=== PATIENT | female | born 1945 | race Caucasian/White ===

== ENCOUNTER 2018-05-01 06:46 | Day surgery (SDC) | payer MEDICARE, OTHER ==
[~2018-05-01 06:46] MED LIST: Lactated Ringers 1,000 ML IV SCH; Sodium Chloride 0.9% 10 ML Syringe FLUSH PRN
[2018-05-01] MEDS ORDERED: fentaNYL 100 MCG/2 ML SDV IV ONE (08:00)
[2018-05-01] MEDS ORDERED: Midazolam 1 MG/ML 2 ML SDV IV ONE (08:00)
[2018-05-01] MEDS ORDERED: Propofol 200 MG/20 ML SDV IV ONE (08:00)
--- NOTE | 2018-05-01 08:12 | PCM.HPR ---
H & P Addendum review - H & P Addendum Review Date of Original H & P: 04/16/18 Date Reviewed: 05/01/18 Time Reviewed: 08:00 Patient was Examined: No Changes (Will do EGD and Colonoscopy for Fe Def Anemia and heme pos stool)
--- NOTE | 2018-05-01 08:52 | PCM.OPNOTE ---
- General Post-Op/Procedure Note Date of Surgery/Procedure: 05/01/18 Operative Procedure(s): EGD and Colonoscopy Findings: Hyperplastic polyps in stomach fundus Sigmoid diverticulosis Pre Op Diagnosis: FE Def Anemia; heme pos Post-Op Diagnosis: Same Anesthesia Technique: MAC Primary Surgeon: Matias Uribe Complications: None Condition: Good
[2018-05-01 12:45] VITALS: BP 174/78
--- NOTE | 2018-05-01 12:51 | OR ---
DATE OF OPERATION: 05/01/2018 SURGEON: Matias Uribe MD PREOPERATIVE DIAGNOSES: 1. Iron deficiency anemia. 2. Heme-positive stool. POSTOPERATIVE DIAGNOSES: 1. Hyperplastic polyps of stomach, fundus. 2. Sigmoid diverticulosis. PROCEDURES PERFORMED: 1. EGD. 2. Colonoscopy. ANESTHESIA: IV sedation. DESCRIPTION OF PROCEDURE: The patient was brought to the procedure room, where she was placed on her left side and IV sedation administered. The oral bite block was placed and the upper endoscope advanced into the esophagus under direct vision without difficulty. Vocal cords were viewed and were normal. The scope was advanced to the third portion of the duodenum. Duodenum and pylorus were normal. Antrum and body of the stomach were normal. Retroflexion revealed a normal-appearing fundus, other than some hyperplastic polyps present. No source of bleeding was identified. Air was removed from the stomach, and the scope was withdrawn through the remaining esophagus, which appears normal. The patient tolerated this portion of the procedure well. Next, colonoscopy was performed, after digital rectal exam was done, which was normal. Colonoscope was inserted and advanced to the level of the cecum without difficulty. Cecal position was confirmed by identifying the ileocecal valve and stool could be seen coming through this because of formed stool present in the cecum. However, I was unable to identify the appendiceal lumen or completely visualize all the surfaces of the cecum, but no abnormalities were noted. Upon withdrawing the scope, the ascending, transverse, and descending colon were normal in appearance. Sigmoid colon had a few diverticula present. Rectum was normal and retroflexion was normal. Air was removed, and the scope withdrawn. The patient tolerated the procedure well and returned to Recovery in a stable condition. No source of her anemia was identified today. She will follow up with Leighann Dominguez in the near future for ongoing treatment. /[id number] RICHARD/CHRISSY
== END 2018-05-01 10:15 | disposition home or self-care (01) ==
LOC: FB.SDS 06:46
PROVIDERS: ATTEND Surgery
DX: R19.5 Other fecal abnormalities (principal); D50.9 Iron deficiency anemia, unspecified; K31.7 Polyp of stomach and duodenum; K57.30 Diverticulosis of large intestine without perforation or abscess without bleeding; K21.9 Gastro-esophageal reflux disease without esophagitis; I10 Essential (primary) hypertension; J45.909 Unspecified asthma, uncomplicated; E03.9 Hypothyroidism, unspecified; E11.9 Type 2 diabetes mellitus without complications; E53.8 Deficiency of other specified B group vitamins; E61.2 Magnesium deficiency; E78.5 Hyperlipidemia, unspecified; M70.62 Trochanteric bursitis, left hip; M70.61 Trochanteric bursitis, right hip; G25.81 Restless legs syndrome; F32.9 Major depressive disorder, single episode, unspecified; Z79.51 Long term (current) use of inhaled steroids; Z79.84 Long term (current) use of oral hypoglycemic drugs; Z79.899 Other long term (current) drug therapy; Z88.8 Allergy status to other drugs, medicaments and biological substances
CPT/HCPCS: 00813; 43235; 45378; 82962; J2250; J2704; J3010; J7120

== ENCOUNTER 2020-11-07 05:00 | Emergency (ER) | payer MEDICARE, OTHER, MEDICAID ==
--- NOTE | 2020-11-07 06:47 | EDM.PDOC ---
<Hernandez Wells - Last Filed: 11/07/20 08:30> ED HPI GENERAL MEDICAL PROBLEM - General Chief Complaint: Upper Extremity Injury/Pain Stated Complaint: arm hurts Time Seen by Provider: 11/07/20 06:42 - Related Data Allergies Allergy/AdvReac Type Severity Reaction Status Date / Time escitalopram [From Lexapro] Allergy Hallucinati Verified 07/22/18 09:04 ons Home Meds: Home Meds Albuterol [Ventolin HFA] 1 - 2 puff INH QID PRN 09/06/13 [History] Levothyroxine [Synthroid] 75 mcg PO ACBRK 09/06/13 [History] Montelukast [Singulair] 10 mg PO BEDTIME 09/06/13 [History] Potassium Chloride [Klor-Con M20] 20 meq PO DAILY 09/06/13 [History] Pravastatin [Pravachol] 40 mg PO BEDTIME 09/06/13 [History] carvediloL [Coreg] 25 mg PO BID 09/06/13 [History] metFORMIN [Glucophage] 1,000 mg PO BID 09/06/13 [History] rOPINIRole HCl [Requip] 1 mg PO TID 09/06/13 [History] Venlafaxine [Effexor] 75 mg PO DAILY 02/07/14 [History] ClonazePAM [KlonoPIN] 0.5 mg PO BEDTIME 06/26/15 [History] Furosemide [Lasix] 20 mg PO DAILY 06/26/15 [History] Loratadine/Pseudoephedrine [Loratadine-Pseudoephed 10-240] 1 ea PO DAILY 06/26/15 [History] Iron Ps Cmplx/Vit B12/Fa [Poly-Iron 150 Forte] 1 each PO BID 04/30/18 [History] Omeprazole 20 mg PO DAILY 04/30/18 [History] Azithromycin [Zithromax] 250 gm PO DAILY 07/21/18 [History] Ferrous Sulfate 300 mg PO DAILY 07/21/18 [History] Fluticasone Propionate 1 spray NS DAILY 07/21/18 [History] Magnesium 800 mg PO DAILY 07/21/18 [History] Acetaminophen/HYDROcodone [Pomona 325-5 MG] 1 tab PO Q4H PRN #20 tab 11/07/20 [Rx] Course - Vital Signs Text/Narrative:: Ortho consult was done with Torin and wants her to have a humeral brace and will call her for ortho follow up. Departure - Departure Time of Disposition: 15:00 Disposition: DC/Tfer to SNF 03 Condition: Good Clinical Impression: Left humeral fracture, Humerus fracture - Discharge Information Prescriptions: Acetaminophen/HYDROcodone [Pomona 325-5 MG] 1 tab PO Q4H PRN #20 tab PRN Reason: Pain Instructions: Humerus Fracture Treated With Immobilization, [id number] Referrals: Humberto Carroll MD [Primary Care Provider] - Forms: ED Department Discharge Additional Instructions: Please read discharge instructions on humeral fracture Take Pomona, 1-2 tablets every 4-6 hours as needed for pain Ortho at [facility] will call you this week and see if they can do a follow up with you earlier than your scheduled appointment <OliverMario M - Last Filed: 11/09/20 08:47> ED HPI GENERAL MEDICAL PROBLEM - General Source of Information: Reports: Patient, Custodial Records, Old Records History Limitations: Reports: No Limitations - History of Present Illness INITIAL COMMENTS - FREE TEXT/NARRATIVE: Sonia is a pleasant 75 yo female with arm pain since this morning.She is from [facility] She accidentally pulled herself using the left arm to avoid a fall. She has a recent fracture of the arm,that was treated conservatively and is just healing. She has possible "bone cancer",and is due to consultation with oncology Monday. She also endorses lower abdominal pain and leg pain ,fairly chronic. 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: Musculoskeletal History: Reports: Arthritis, Other (See Below) Other Musculoskeletal History: SPINAL STENOSIS, recent left arm fracture Psychiatric History: Reports: Depression Endocrine/Metabolic History: Reports: Diabetes, Type II, Hypothyroidism, Obesity/BMI 30+ Hematologic History: Reports: Anemia, B12 Deficiency Immunologic History: Reports: None Oncologic (Cancer) History: Reports: None - Infectious Disease History Infectious Disease History: Reports: MRSA - Past Surgical History Musculoskeletal Surgical History: Reports: Carpal Tunnel Other Musculoskeletal Surgeries/Procedures:: BACK SURGERY Social & Family History - Family History Family Medical History: No Pertinent Family History - Tobacco Use Tobacco Use Status *Q: Never Tobacco User - Caffeine Use Caffeine Use: Reports: Coffee Other Caffeine Use: occ Caffeine Use Comment: 2 cup coffee 2-3 cans coke - Recreational Drug Use Recreational Drug Use: No - Living Situation & Occupation Living situation: Reports: Review of Systems - Review of Systems Review Of Systems: Comprehensive ROS is negative, except as noted in HPI. ED EXAM, GENERAL - Physical Exam Exam: See Below Exam Limited By: No Limitations General Appearance: Alert, WD/WN Throat/Mouth: Normal Inspection Head: Atraumatic Neck: Normal Inspection Respiratory/Chest: No Respiratory Distress, Lungs Clear, No Accessory Muscle Use GI/Abdominal: Normal Bowel Sounds, Soft, Tender (LLQ) Extremities: Other (Left arm swollen.,tender,with obvious deformity) Neurological: Alert Psychiatric: Normal Affect Skin Exam: Warm Course - Vital Signs Last Recorded V/S: Last Vital Signs Temp 97.5 F 11/07/20 05:10 Pulse 82 11/07/20 09:00 Resp 19 11/07/20 09:00 BP 142/87 H 11/07/20 09:00 Pulse Ox 95 11/07/20 09:00 - Orders/Labs/Meds Labs: Laboratory Tests 11/07/20 11/07/20 11/07/20 Range/Units 05:50 05:50 05:50 WBC 4.5 (3.0-10.3) x10-3/uL RBC 3.70 (3.60-5.20) x10(6)uL Hgb 10.8 L (11.4-15.5) g/dL Hct 33.9 L (34.2-48.2) % MCV 91.7 (76.7-100.5) fL MCH 29.3 (23.9-33.9) pg MCHC 31.9 (31.9-34.8) g/dL RDW 15.2 (12.3-16.5) % Plt Count 185 (151-488) x10(3)uL MPV 8.4 (7.1-12.4) fL Neut % (Auto) 58.1 (30.8-76.2) % Lymph % (Auto) 26.1 (18.4-52.1) % [place] % (Auto) 11.3 (4.4-15.7) % Eos % (Auto) 3.9 (0.6-8.1) % Baso % (Auto) 0.6 (0.2-1.5) % Neut # (Auto) 2.6 (1.5-6.3) x10-3/uL Lymph # (Auto) 1.2 (1.0-4.4) x10-3/uL [place] # (Auto) 0.5 (0.3-1.0) x10-3/uL Eos # (Auto) 0.2 (0.0-0.8) x10-3/uL Baso # (Auto) 0.0 (0.0-0.1) x10-3/uL Sodium 142 (135-145) mmol/L Potassium 3.7 (3.5-5.3) mmol/L Chloride 103 (100-110) mmol/L Carbon Dioxide 31 (21-32) mmol/L BUN 10 (7-18) mg/dL Creatinine 0.9 (0.55-1.02) mg/dL Est Cr Clr Drug Dosing TNP Estimated GFR (MDRD) > 60 (>60) BUN/Creatinine Ratio 11.1 (9-20) Glucose 127 H (80-116) mg/dL Calcium 11.7 H D (8.6-10.2) mg/dL Total Bilirubin 0.4 (0.1-1.3) mg/dL AST 22 (5-25) IU/L ALT 17 (12-36) U/L Alkaline Phosphatase 148 H (56-112) IU/L Troponin I 54.4 (4.0-60.3) pg/mL Total Protein 6.9 (6.0-8.0) g/dL Albumin 3.2 (3.2-4.6) g/dL Globulin 3.7 g/dL Albumin/Globulin Ratio 0.9 Meds: Medications Discontinued Medications Generic Name Dose Route Start Last Admin Trade Name Freq PRN Reason Stop Dose Admin Hydroxyzine HCl 50 mg 11/07/20 06:58 11/07/20 07:22 Vistaril IM 11/07/20 06:59 50 mg ONETIME ONE Administration Morphine Sulfate 10 mg 11/07/20 06:58 11/07/20 07:21 Morphine IM 11/07/20 06:59 10 mg ONETIME ONE Administration Sepsis Event Note (ED) - Evaluation Sepsis Screening Result: No Definite Risk - Problem List & Annotations (1) Humerus fracture SNOMED Code(s): 79444538 Code(s): S42.309A - UNSP FRACTURE OF SHAFT OF HUMERUS, UNSP ARM, INIT Status: Acute Qualifiers: Encounter type: initial encounter (2) HTN (hypertension) SNOMED Code(s): 43057860 Code(s): I10 - ESSENTIAL (PRIMARY) HYPERTENSION Status: Acute Qualifiers: Hypertension type: essential hypertension Qualified Code(s): I10 - Essential (primary) hypertension - Problem List Review Problem List Initiated/Reviewed/Updated: Yes - Assessment/Plan Plan: I have her Morphine and Vistaril for pain. Dr Wells will take care of splinting before Discharge
[2020-11-07] MEDS ORDERED: hydrOXYzine HCl 50 MG/ML SDV IM ONE (06:58)
[2020-11-07] MEDS ORDERED: Morphine 10 MG/ML SDV IM ONE (06:58)
[2020-11-07 10:49] VITALS: BP 142/87; PULSE 82
--- NOTE | 2020-11-09 15:36 | CR ---
INDICATION: Pain, recent fracture. 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 Additional moth-eaten areas were noted in the proximal end distal shaft of the humerus. Significant deformity is noted at the fracture site with separation of the fracture fragments, angulation and offset at the fracture site. MTDD
== END 2020-11-07 09:07 ==
LOC: FB.ED 05:00
DX: S42.302A Unspecified fracture of shaft of humerus, left arm, initial encounter for closed fracture (principal); E78.00 Pure hypercholesterolemia, unspecified; I10 Essential (primary) hypertension; J45.909 Unspecified asthma, uncomplicated; K21.9 Gastro-esophageal reflux disease without esophagitis; F32.9 Major depressive disorder, single episode, unspecified; E11.9 Type 2 diabetes mellitus without complications; E03.9 Hypothyroidism, unspecified; E66.9 Obesity, unspecified; Z88.8 Allergy status to other drugs, medicaments and biological substances; Z79.899 Other long term (current) drug therapy; Z79.84 Long term (current) use of oral hypoglycemic drugs; X58.XXXA Exposure to other specified factors, initial encounter
CPT/HCPCS: 36415; 73060; 80053; 84484; 85025; 96372; 99284; J2270; J3410